=== PATIENT | female | born 1970 | race Caucasian/White ===

== ENCOUNTER → 2022-04-30 | Outpatient (CLI) | payer SELFPAY ==
--- NOTE | 2022-04-30 15:37 | XR ---
EXAMINATION TYPE: XR Hip Complete RT DATE OF EXAM: 04/30/2022 CLINICAL HISTORY: Pain and osteoarthritis. TECHNIQUE: AP and frogleg views of the right hip are obtained. COMPARISON: None. FINDINGS: There is no acute fracture/dislocation evident in the right hip. Mild axial joint space lo ss in the right hip and mild acetabular spurring. More prominent spurring and bony formation near re gion of the greater trochanter. Single tiny right-sided pelvic phlebolith. IMPRESSION: As above.
--- NOTE | 2022-04-30 15:42 | XR ---
EXAMINATION TYPE: XR lumbosacral spine min 4V DATE OF EXAM: 04/30/2022 CLINICAL HISTORY: Low back pain and osteoarthritis. TECHNIQUE: Frontal, lateral, and oblique images of the lumbar spine are obtained. COMPARISON: None FINDINGS: There are 5 lumbar type vertebral bodies identified. The lumbar spine shows satisfactory alignment without evidence of acute fracture or dislocation. Vertebral body heights and disk space he ights are within normal limits. Mild multilevel anterior and lateral spurring. The oblique images a ppear within normal limits. Moderate overlying arterial vascular calcification. IMPRESSION: As above.
== END | disposition home or self-care (01) ==
LOC: RADXRMAIN 11:25
PROVIDERS: ATTEND Family Medicine
DX: M25.751 Osteophyte, right hip (principal); I25.10 Atherosclerotic heart disease of native coronary artery without angina pectoris; M54.59 Other low back pain
CPT/HCPCS: 72110; 73502